=== PATIENT | female | born 1955 | race Caucasian/White ===

== ENCOUNTER → 2021-02-28 | Outpatient (CLI) | payer BC ==
[~2021-02-28] MED LIST: ALEVE220 MG PO; MULTI VITAMINS1 TAB PO; VICO75300 PO; ZYRTEC10 M1 PO
== END | disposition home or self-care (01) ==
LOC: US 16:43
PROVIDERS: ATTEND Physician Assistant
DX: M79.604 Pain in right leg (principal)